=== PATIENT | male | born 1960 | race Caucasian/White ===

== ENCOUNTER 2017-09-29 17:15 | Emergency (ER) | payer BC ==
[~2017-09-29] VITALS: Ht 167.6 cm; Wt 107.7 kg
[2017-09-29 17:23] VITALS: Ht 167.6 cm; Wt 107.7 kg
[2017-09-29 19:07] LABS: BASOPHIL % 0.2 % (0-2); PLATELET COUNT 201 x10^3mcL (130-400)
[2017-09-29 19:09] LABS: CALCIUM 8.6 mg/dL (8.5-10.1); CHLORIDE SERUM 100 mmol/L (98-107); CREATININE SERUM 1.2 mg/dL (0.7-1.3); GFR1 > 60 mL/min; GLUCOSE SERUM 108 mg/dL (74-106); POTASSIUM SERUM 3.8 mmol/L (3.5-5.1); SODIUM SERUM 134 mmol/L (136-145)
[2017-09-29 19:14] LABS: ALBUMIN 4.1 g/dL (3.4-5.0); ALKALINE PHOSPHATASE 104 U/L (46-116); ALT/SGPT 99 U/L (16-63); AST/SGOT 39 U/L (15-37); BILIRUBIN TOTAL 0.8 mg/dL (0.20-1.00); TOTAL PROTEIN, SERUM 7.8 g/dL (6.4-8.2)
[2017-09-29 20:05] VITALS: BP 139/99
== END 2017-09-29 20:05 | disposition home or self-care (01) ==
LOC: ED 17:15
PROVIDERS: Emergency Medicine
DX: N23 Unspecified renal colic (principal)
CPT/HCPCS: J1885; J7030

== ENCOUNTER 2017-10-01 11:44 | Inpatient (IN) | payer BC ==
[~2017-10-01] VITALS: Ht 167.6 cm; Wt 108.0 kg
[2017-10-01 12:40] LABS: BASOPHIL % 0.3 % (0-2); PLATELET COUNT 189 x10^3mcL (130-400); RED CELL DISTRIBUTION WIDTH 12.6 % (11.5-14.5)
[2017-10-01] MEDS ORDERED: NORCO1 TA2 PO (12:52)
[2017-10-01] MEDS ORDERED: TAMSULOSIN HYD0.4 M1 PO (12:52)
[2017-10-01 13:09] LABS: UA SPECIFIC GRAVITY 1.025 (1.005-1.035); microscopic required? YES; urine erythrocyte NEGATIVE (NEGATIVE)
[2017-10-01 13:29] LABS: CALCIUM 8.8 mg/dL (8.5-10.1); CARBON DIOXIDE 28.1 mmol/L (21-32); CHLORIDE SERUM 100 mmol/L (98-107); CREATININE SERUM 1.3 mg/dL (0.7-1.3); GFR1 > 60 mL/min; GLUCOSE SERUM 131 mg/dL (74-106); POTASSIUM SERUM 4.1 mmol/L (3.5-5.1); SODIUM SERUM 132 mmol/L (136-145)
[2017-10-01 13:33] LABS: ALBUMIN 4.2 g/dL (3.4-5.0); ALKALINE PHOSPHATASE 99 U/L (46-116); ALT/SGPT 70 U/L (16-63); AST/SGOT 25 U/L (15-37); BILIRUBIN TOTAL 1.2 mg/dL (0.20-1.00); LIPASE 112 IU/L (73-393); TOTAL PROTEIN, SERUM 8.2 g/dL (6.4-8.2)
[2017-10-01 14:03] LABS: T3 TOTAL 1.17 ng/mL
[2017-10-01 14:07] VITALS: BP 136/82
[2017-10-01 14:23] VITALS: Ht 167.6 cm; Wt 108.0 kg
[2017-10-01 14:41] LABS: FREE T4 1.06 ng/dL (0.76-1.46); FREE THYROXINE INDEX 2.8 ug/dL (1.4-4.5); T4(THYROXINE) 8.2 ug/dL (4.7-13.3)
[2017-10-01 14:55] LABS: CHOLESTEROL/HDL RATIO 4.3; MAGNESIUM 1.9 mg/dL (1.8-2.4); PHOSPHOROUS 3.2 mg/dL (2.5-4.9)
[2017-10-01 17:19] VITALS: BP 136/87
[2017-10-01 17:41] LABS: AMPHETAMINE QUAL UR NONE DETECTED (NEG <=1000)
[2017-10-01 21:58] VITALS: BP 141/87
[2017-10-02 05:02] VITALS: BP 152/87
[2017-10-02 06:25] LABS: BASOPHIL % 0.4 % (0-2); PLATELET COUNT 169 x10^3mcL (130-400); RED CELL DISTRIBUTION WIDTH 12.5 % (11.5-14.5)
[2017-10-02 06:28] LABS: CALCIUM 8.3 mg/dL (8.5-10.1); CARBON DIOXIDE 26.3 mmol/L (21-32); CHLORIDE SERUM 102 mmol/L (98-107); CREATININE SERUM 1.1 mg/dL (0.7-1.3); GFR1 > 60 mL/min; GLUCOSE SERUM 134 mg/dL (74-106); MAGNESIUM 1.9 mg/dL (1.8-2.4); POTASSIUM SERUM 4.1 mmol/L (3.5-5.1); SODIUM SERUM 135 mmol/L (136-145)
[2017-10-02 13:17] VITALS: BP 140/87
[2017-10-02 16:52] VITALS: BP 139/89
[2017-10-02 20:58] VITALS: BP 131/80
[2017-10-03 05:59] VITALS: BP 117/66
[2017-10-03 06:37] LABS: CALCIUM 8.3 mg/dL (8.5-10.1); CARBON DIOXIDE 26.8 mmol/L (21-32); CHLORIDE SERUM 105 mmol/L (98-107); CREATININE SERUM 0.9 mg/dL (0.7-1.3); GFR1 > 60 mL/min; GLUCOSE SERUM 128 mg/dL (74-106); MAGNESIUM 2.1 mg/dL (1.8-2.4); PHOSPHOROUS 3.1 mg/dL (2.5-4.9); SODIUM SERUM 139 mmol/L (136-145)
[2017-10-03 07:44] LABS: BASOPHIL % 0.4 % (0-2); PLATELET COUNT 183 x10^3mcL (130-400); RED CELL DISTRIBUTION WIDTH 12.5 % (11.5-14.5)
[2017-10-03 09:31] VITALS: BP 117/66
[2017-10-03 09:47] VITALS: BP 127/76
== END 2017-10-03 11:28 | disposition home or self-care (01) | DRG 694 ==
LOC: ED 11:44 → MU 12:43 → DU 12:43 → MU 10-02 08:06
PROVIDERS: Emergency Medicine; Family Medicine
DX: N13.2 Hydronephrosis with renal and ureteral calculous obstruction (principal); N17.0 Acute kidney failure with tubular necrosis; R73.03 Prediabetes; K76.0 Fatty (change of) liver, not elsewhere classified
CPT/HCPCS: 83880; 84439; J0696; J1885; J3010; J7030; Q0092